=== PATIENT | female | born 1960 | race Caucasian/White ===

== ENCOUNTER 2018-08-07 06:07 | Emergency (ER) | payer OTHER ==
[2018-08-07] MEDS ORDERED: Albuterol/Ipratropium 3.0-0.5 MG/3 ML Neb Soln NEB ONE (06:29)
--- NOTE | 2018-08-07 06:35 | EDM.PDOC ---
ED HPI GENERAL MEDICAL PROBLEM - General Chief Complaint: Respiratory Problem Stated Complaint: COUGH, SORE THROAT, CAN'T BREATHE Time Seen by Provider: 08/07/18 06:25 - History of Present Illness INITIAL COMMENTS - FREE TEXT/NARRATIVE: HISTORY AND PHYSICAL: History of present illness: The patient is a 57-year-old female who presents with complaints of at least a one-week history of spastic cough productive of some white phlegm pain with coughing nasal congestion and drainage as well as a sore throat. The patient received her flu shot this year and has not had fevers chills nausea or vomiting with the symptoms. The patient was seen at [facility] last week and did not have any testing and was told that she had a viral illness. Because she has had some spasms of coughing she called her regular provider at [facility], and she saw a different person when she was there last week, and that provider called in Phenergan with codeine. Patient still is having is spastic cough and thinks that she needs more evaluation. She has been hydrating she does not smoke cigarettes. 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 Review of systems: As per history of present illness and below otherwise all systems reviewed and negative. Past medical history: As per history of present illness and as reviewed below otherwise noncontributory. Surgical history: As per history of present illness and as reviewed below otherwise noncontributory. Social history: No reported history of drug or alcohol abuse. Family history: As per history of present illness and as reviewed below otherwise noncontributory. Physical exam: General: Well-developed well-nourished female who is nontoxic and has nasal quality to voice. She is not breathless on my evaluation. She has a spastic cough is bronchitic and quality on my evaluation. Vital signs are noted by me HEENT: Atraumatic, normocephalic, negative for conjunctival pallor or scleral icterus, mucous membranes moist, throat clear, neck supple, nontender, trachea midline. No cervical adenopathy Lungs: Clear to auscultation without wheezing, breath sounds equal bilaterally, chest nontender. There are some scattered rhonchi but no wheezing or stridor and no worker breathing Heart: S1S2, regular rate and rhythm no overt murmurs Abdomen: Soft, nondistended, nontender. Pelvis: Deferred Genitourinary: Deferred. Rectal: Deferred. Extremities: Atraumatic, no pedal edema full range of motion Neurovascular unremarkable. Neuro: Awake, alert, oriented. Cranial nerves II through XII unremarkable. Cerebellum unremarkable. Motor and sensory unremarkable throughout. Exam nonfocal. Diagnostics: Chest x-ray Therapeutics: DuoNeb, prednisone, and spacer teaching Impression: Acute bronchitis with bronchospasm and bronchospastic cough Definitive disposition and diagnosis as appropriate pending reevaluation and review of above. 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: 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 History: Reports: None Neurological History: Reports: None Psychiatric History: Reports: None Endocrine/Metabolic History: Reports: None Hematologic History: Reports: None Immunologic History: Reports: None Oncologic (Cancer) History: Reports: None Dermatologic History: Reports: None - Infectious Disease History Infectious Disease History: Reports: None - Past Surgical History Head Surgeries/Procedures: Reports: None Female Surgical History: Reports: Hysterectomy Social & Family History - Family History Family Medical History: Noncontributory - Tobacco Use Smoking Status *Q: Never Smoker - Caffeine Use Caffeine Use: Reports: Coffee, Tea - Recreational Drug Use Recreational Drug Use: No ED ROS GENERAL - Review of Systems Review Of Systems: ROS reveals no pertinent complaints other than HPI. ED EXAM, GENERAL - Physical Exam Exam: See Below (See dictation) Course - Vital Signs Last Recorded V/S: Last Vital Signs Temp 36.5 C 08/07/18 06:16 Pulse 96 08/07/18 06:16 Resp 19 08/07/18 06:16 BP 131/71 08/07/18 06:16 Pulse Ox 95 08/07/18 06:16 - Orders/Labs/Meds Orders: Active Orders 24 hr Category Date Time Status Communication Order [RC] STAT Care 08/07/18 06:29 Active RT Aerosol Therapy [RC] ASDIRECTED Care 08/07/18 06:29 Active Chest 2V [CR] Stat Exams 08/07/18 06:29 Ordered Meds: Medications Discontinued Medications Generic Name Dose Route Start Last Admin Trade Name Dell PRN Reason Stop Dose Admin Albuterol/Ipratropium 3 ml 08/07/18 06:29 08/07/18 06:34 Duoneb 3.0-0.5 Mg/3 Ml NEB 08/07/18 06:30 3 ml ONETIME ONE Administration Prednisone 20 mg 08/07/18 06:36 Prednisone PO 08/07/18 06:37 ONETIME ONE Departure - Departure Time of Disposition: 07:00 Disposition: Home, Self-Care 01 Condition: Good Clinical Impression: Cough due to bronchospasm Acute bronchitis Qualifiers: Bronchitis organism: unspecified organism Qualified Code(s): J20.9 - Acute bronchitis, unspecified - Discharge Information Referrals: Krystal Mann NP [Primary Care Provider] - Forms: ED Department Discharge Additional Instructions: The following information is given to patients seen in the emergency department who are being discharged to home. This information is to outline your options for follow-up care. We provide all patients seen in our emergency department with a follow-up referral. The need for follow-up, as well as the timing and circumstances, are variable depending upon the specifics of your emergency department visit. If you don't have a primary care physician on staff, we will provide you with a referral. We always advise you to contact your personal physician following an emergency department visit to inform them of the circumstance of the visit and for follow-up with them and/or the need for any referrals to a consulting specialist. The emergency department will also refer you to a specialist when appropriate. This referral assures that you have the opportunity for followup care with a specialist. All of these measure are taken in an effort to provide you with optimal care, which includes your followup. Under all circumstances we always encourage you to contact your private physician who remains a resource for coordinating your care. When calling for followup care, please make the office aware that this follow-up is from your recent emergency room visit. If for any reason you are refused follow-up, please contact the [facility] emergency department at and ask to speak to the emergency department charge nurse. [address] [place] [address] Please contact her provider in the clinic for follow-up care and continue to use the cough medicine you were prescribed as you choose. Use the albuterol inhaler with the spacer you have been given 1-2 puffs every 6 hours for the next 2 days and then 1-2 puffs every 6 hours as needed. Take prednisone as prescribed. Push hydration and coolmist humidifier at sleep times. Use any over- the-counter preps that you choose for your symptoms. Return to ER as needed and as discussed - My Orders Last 24 Hours: My Active Orders 08/07/18 06:29 Communication Order [RC] STAT RT Aerosol Therapy [RC] ASDIRECTED Chest 2V [CR] Stat - Assessment/Plan Last 24 Hours: My Active Orders 08/07/18 06:29 Communication Order [RC] STAT RT Aerosol Therapy [RC] ASDIRECTED Chest 2V [CR] Stat
[2018-08-07] MEDS ORDERED: predniSONE 20 MG Tab PO ONE (06:36)
--- NOTE | 2018-08-07 10:34 | CR ---
EXAM DATE: 08/07/18 PATIENT'S AGE: 57 Patient: SALLY HOPE Facility: [facility] Site . Site : 1960 Study: XRay-Chest [id number]/12/2019 7:09:41 AM Ordering Physician: Doctor Larose Final Report: INDICATION: Shortness of breath. Cough. Pain. TECHNIQUE: Two-view chest. FINDINGS: There are several superior posterior left-sided rib fractures age indeterminate. Please correlate clinically. Specifically there is irregularity of the 2nd, 3rd, 4th, and 5th ribs. A displaced rib fracture is not excluded. Focal opacity left upper lobe could reflect intrapulmonary hematoma. Clear right lung. Normal heart size. No pneumothorax. Old fracture deformity left clavicle. Comparison to any previous studies would be helpful. Impression : Fracture deformities of several upper posterior left ribs age indeterminate. Please correlate for any history of trauma. Opacity left upper lobe could reflect intrapulmonary hemorrhage. If there has been no trauma, a primary pulmonary lesion could not be excluded. Comparison with any previous studies would be helpful. Dictated by Rodger Naik MD @ Aug 07 2018 7:21AM Signed by: Rodger Naik MD @08/07/2018 7:23:23 AM (Electronic Signature) Report Signed by Proxy. PETERSON
== END 2018-08-07 07:51 | disposition home or self-care (01) ==
LOC: MW.ED 06:07
DX: J20.9 Acute bronchitis, unspecified (principal); I10 Essential (primary) hypertension; Z90.710 Acquired absence of both cervix and uterus
CPT/HCPCS: 71046; 94640; 99283; A9270; J7620-GY

== ENCOUNTER 2019-06-23 11:22 | Emergency (ER) | payer OTHER ==
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
[2019-06-23] MEDS ORDERED: Acetaminophen/HYDROcodone 325-5 MG Tab PO ONE (12:31)
--- NOTE | 2019-06-23 13:00 | CR ---
Chest: Portable view of the chest was obtained. Comparison: Prior chest x-ray of 08/07/18. Heart size is mildly enlarged. Upper mediastinum is within normal limits for technique. Parenchymal density is noted within the left upper chest which is stable from previous exam and difficult to exclude a pulmonary nodule or mass. Slight scarring is seen within the left upper chest. Lung markings slightly increased which appears stable. No acute parenchymal change is seen. Old healed left clavicle fracture. Old left-sided rib fractures are noted. Impression: 1. Pulmonary opacity within left upper chest similar to prior study. Difficult to exclude pulmonary nodule or mass. Noncontrast chest CT could be obtained to further evaluate. 2. Scarring within the left upper chest. 3. Old bony trauma. 4. Mild cardiomegaly. Diagnostic code #9 This report was dictated in [place] Standard Time
--- NOTE | 2019-06-23 13:05 | CR ---
Left elbow: 3 views left elbow were obtained. Limitations: Positioning is somewhat less than optimal. No joint effusion is seen. No discrete fracture, dislocation or other bony abnormality is seen. Impression: 1. Slightly less than optimal exam due to positioning. 2. No discrete left elbow abnormality is appreciated. Diagnostic code #2 This report was dictated in [place] Standard Time
--- NOTE | 2019-06-23 13:05 | CR ---
Left wrist: 3 views left wrist were obtained. Comparison: No previous wrist exam. Distal radial fracture is seen. Posterior displacement of the distal fragment by 5-6 mm is noted. Nondisplaced fracture within the base of the ulnar styloid process is seen. No additional fracture or other bony abnormality is seen. Soft tissue swelling is noted. Impression: 1. Fractures as noted above with soft tissue swelling. Diagnostic code #3 This report was dictated in [place] Standard Time
--- NOTE | 2019-06-23 13:36 | CT ---
Head CT Technique: Multiple axial sections through the brain were obtained. Intravenous contrast was not utilized. Comparison: No prior intracranial imaging is available. Findings: Ventricles along with basal cisterns and sulci over the convexities appear within normal limits for the patient's age. No abnormal parenchymal densities are seen. No evidence of intracranial hemorrhage. No midline shift or mass effect is seen. Bone window settings were reviewed. Visualized paranasal sinuses show nothing acute. Mastoid sinuses also show nothing acute. No acute calvarial abnormality is appreciated. Impression: 1. Nothing acute is appreciated on noncontrast head CT exam. Diagnostic code #1 Study was dictated in [place] Standard Time
--- NOTE | 2019-06-23 13:36 | CT ---
CT cervical spine Technique: Multiple axial sections through the cervical spine were obtained. Study was obtained from above C1 inferiorly to the top of T4. Reconstructed coronal and sagittal images were obtained. Comparison: No prior cervical spine imaging. Findings: C5-C6: Moderate disc space narrowing is seen. Slight posterior osteophytes are noted as well as mild anterior osteophytes. Other disc spaces are maintained. Vertebral body heights are maintained. Mild degenerative apophyseal change is scattered throughout the cervical spine. No bony central or bony neural foraminal stenosis is seen. Cervical curvature is slightly abnormal due to degenerative change at C5-C6 Impression: 1. Degenerative change as noted above. 2. Nothing acute is appreciated on CT study of the cervical spine. Diagnostic code #2 Study was dictated in [place] Standard Time
== END 2019-06-23 14:35 | disposition home or self-care (01) ==
LOC: MW.ED 11:22
DX: S06.0X0A Concussion without loss of consciousness, initial encounter (principal); S62.102A Fracture of unspecified carpal bone, left wrist, initial encounter for closed fracture; I10 Essential (primary) hypertension; Z79.899 Other long term (current) drug therapy; W01.10XA Fall on same level from slipping, tripping and stumbling with subsequent striking against unspecified object, initial encounter; Y92.512 Supermarket, store or market as the place of occurrence of the external cause
CPT/HCPCS: 29125; 70450; 71045; 72125; 73080; 73110; 99285; A9270; 99283

== ENCOUNTER → 2019-06-26 | Day surgery (SDC) | payer OTHER ==
[~2019-06-26] MED LIST: Acetaminophen/oxyCODONE 325-5 MG Tab PO PRN; Bupivacaine 0.5% 30 ML SDV ONE; Glycopyrrolate 0.2 MG/ML SDV ONE; Haloperidol Lactate 5 MG/ML SDV IM ONE; Ketorolac 30 MG/ML SDV ONE; Lactated Ringers 1,000 ML IV SCH; Lidocaine 2% 5 ML SDV ONE; Midazolam 1 MG/ML 2 ML SDV ONE; Ondansetron 4 MG/2 ML SDV ONE; Phenylephrine/Normal Saline 100 MCG/ML 10 ML Syringe ONE; Propofol 200 MG/20 ML SDV ONE; Sodium Chloride 0.9% 20 ML ONE; ceFAZolin 1 GM Vial ONE; fentaNYL 100 MCG/2 ML SDV ONE
--- NOTE | 2019-06-26 07:22 | PCM.PREANE ---
Preanesthetic Assessment - Anesthesia/Transfusion/Family Hx Anesthesia History: Prior Anesthesia Without Reaction Family History of Anesthesia Reaction: No Transfusion History: No Prior Transfusion(s) - Review of Systems General: No Symptoms Pulmonary: No Symptoms Cardiovascular: No Symptoms Gastrointestinal: No Symptoms Neurological: Paresthesia Other: Reports: None - Physical Assessment NPO Status Date: 06/25/19 Height: 5 ft 8 in Weight: 95.254 kg ASA Class: 2 Mental Status: Alert & Oriented x3 Airway Class: Mallampati = 2 Dentition: Reports: Normal Dentition ROM/Head Extension: Full Lungs: Clear to Auscultation, Normal Respiratory Effort Cardiovascular: Regular Rate, Regular Rhythm - Allergies Allergies/Adverse Reactions: Allergies Allergy/AdvReac Type Severity Reaction Status Date / Time No Known Allergies Allergy Verified 06/25/19 16:40 - Blood Blood Available: No - Anesthesia Plan Pre-Op Medication Ordered: None - Acknowledgements Anesthesia Type Planned: General Anesthesia Pt an Appropriate Candidate for the Planned Anesthesia: Yes Alternatives and Risks of Anesthesia Discussed w Pt/Guardian: Yes Pt/Guardian Understands and Agrees with Anesthesia Plan: Yes Additional Comments: PMH: thr replacement, htn-controlled, MARIO-uses cpap regularly- inst sheet given PLAN: ga/lma PreAnesthesia Questionnaire HEENT History: Reports: Allergic Rhinitis, Other (See Below) Other HEENT History: wears glasses Cardiovascular History: Reports: Hypertension Respiratory History: Reports: Bronchitis, Recurrent, Sleep Apnea Other Respiratory History: uses CPAP Gastrointestinal History: Reports: Other (See Below) Other Gastrointestinal History: occasional heartburn Genitourinary History: Reports: None 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 Neurological History: Reports: Concussion Psychiatric History: Reports: None Endocrine/Metabolic History: Reports: Hypothyroidism, Obesity/BMI 30+ Hematologic History: Reports: None Immunologic History: Reports: None Oncologic (Cancer) History: Reports: None Dermatologic History: Reports: None - Infectious Disease History Infectious Disease History: Reports: None - Past Surgical History Head Surgeries/Procedures: Reports: None HEENT Surgical History: Reports: None Cardiovascular Surgical History: Reports: None Respiratory Surgical History: Reports: None GI Surgical History: Reports: Appendectomy Female Surgical History: Reports: Hysterectomy Endocrine Surgical History: Reports: None Neurological Surgical History: Reports: None 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 Surgical History: Reports: ORIF Other 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 Surgeries/Procedures:: ORIf fx collarbone, removal of hardware to collarbone Oncologic Surgical History: Reports: None Dermatological Surgical History: Reports: Skin Graft - SUBSTANCE USE Smoking Status *Q: Never Smoker Recreational Drug Use History: No - HOME MEDS Home Medications: Home Meds Losartan [Cozaar] 100 mg PO DAILY 08/07/18 [History] Dicyclomine [Bentyl] 10 mg PO DAILY 06/23/19 [History] Levothyroxine Sodium [Synthroid] 25 mcg PO DAILY 06/23/19 [History] - CURRENT (IN HOUSE) MEDS Current Meds: Current Medications Discontinued Medications Fentanyl (Sublimaze) Confirm Administered Dose 100 mcg .ROUTE .STK-MED ONE Stop: 06/26/19 06:56 Glycopyrrolate (Robinul) Confirm Administered Dose 0.2 mg .ROUTE .STK-MED ONE Stop: 06/26/19 07:01 Ketorolac Tromethamine (Toradol) Confirm Administered Dose 30 mg .ROUTE .STK- MED ONE Stop: 06/26/19 07:01 Lidocaine (Xylocaine-Mpf 2%) Confirm Administered Dose 5 ml .ROUTE .STK-MED ONE Stop: 06/26/19 07:01 Midazolam HCl (Versed 1 Mg/Ml) Confirm Administered Dose 2 mg .ROUTE .STK-MED ONE Stop: 06/26/19 06:56 Ondansetron HCl (Zofran) Confirm Administered Dose 4 mg .ROUTE .STK-MED ONE Stop: 06/26/19 07:01 Propofol (Diprivan 20 Ml) Confirm Administered Dose 200 mg .ROUTE .STK-MED ONE Stop: 06/26/19 06:56
[2019-06-26] MEDS: fentaNYL 100 MCG/2 ML SDV IVPUSH PRN ×2 (09:14→09:20)
--- NOTE | 2019-06-26 10:36 | PCM.OPNOTE ---
- General Post-Op/Procedure Note Date of Surgery/Procedure: 06/26/19 Operative Procedure(s): orif left distal radius. left wrist short arm splint Pre Op Diagnosis: left distal radius closed Post-Op Diagnosis: Same Anesthesia Technique: General ET Tube Primary Surgeon: Loyd Harrell End Frazer: Lida Granados EBL in mLs: 0 Complications: None Condition: Good Free Text/Narrative:: Intake & Output 06/25/19 06/26/19 06/26/19 22:59 06:59 14:59 Intake Total 800 Balance 800
--- NOTE | 2019-06-26 12:05 | PCM.POSTAN ---
POST ANESTHESIA ASSESSMENT - MENTAL STATUS Mental Status: Alert, Oriented - VITAL SIGNS Vital Signs: Last Vital Signs Temp 97.5 F 06/26/19 09:45 Pulse 82 06/26/19 10:15 Resp 16 06/26/19 10:00 BP 144/80 H 06/26/19 10:15 Pulse Ox 98 06/26/19 10:00 - RESPIRATORY Respiratory Status: Respiratory Rate WNL, Airway Patent, O2 Saturation Stable - CARDIOVASCULAR CV Status: Pulse Rate WNL, Blood Pressure Stable - GASTROINTESTINAL GI Status: No Symptoms - POST OP HYDRATION Hydration Status: Adequate & Stable
--- NOTE | 2019-06-26 12:05 | PCM48HPAN ---
Post Anesthesia Note - EVALUATION WITHIN 48HRS OF ANESTHETIC Vital Signs in Normal Range: Yes Patient Participated in Evaluation: Yes Respiratory Function Stable: Yes Airway Patent: Yes Cardiovascular Function Stable: Yes Hydration Status Stable: Yes Pain Control Satisfactory: Yes Nausea and Vomiting Control Satisfactory: Yes Mental Status Recovered: Yes Vital Signs: Last Vital Signs Temp 97.5 F 06/26/19 09:45 Pulse 82 06/26/19 10:15 Resp 16 06/26/19 10:00 BP 144/80 H 06/26/19 10:15 Pulse Ox 98 06/26/19 10:00
--- NOTE | 2019-06-26 16:12 | CR ---
Left wrist: 3 fluoroscopic spot views of the left wrist are obtained utilizing C-arm device. Study shows placement of plate and screws affixing previous distal left radial fracture. Fluoroscopy time is given as 4 seconds. Impression: 1. Procedural study as noted above. Diagnostic code #2 Study was dictated in [place] Standard Time
--- NOTE | 2019-06-26 16:59 | OR ---
SURGEON: Loyd Harrell DATE OF PROCEDURE: 06/26/2019 PREOPERATIVE DIAGNOSIS: Left distal radius fracture, closed. POSTOPERATIVE DIAGNOSIS: Left distal radius fracture, closed. PROCEDURE: Open reduction and internal fixation of left distal radius and application of short-arm splint. BLOCK SPLITTER OPERATOR: ISIDRA Santos. Nurse practitioner, ISIDRA Santos, played an essential role in assisting in this case, helping to position the patient, retract structures as needed, as well as suturing and cutting sutures as indicated. Her presence improved patient's safety and decreased operative time. FLUIDS: Lactated Ringer solution. ESTIMATED BLOOD LOSS: 10 mL. COMPLICATIONS: None. SPECIMEN: None. DISCHARGE DISPOSITION: Stable to PACU. HISTORY AND INDICATION FOR THE PROCEDURE: The patient was seen preoperatively in the clinic. She had suffered a fall, was seen in the emergency department, was found to have the above-mentioned fracture confirmed by radiographs. Preoperative risks and goals of the procedure were explained to the patient. Informed consent was obtained. DETAILS OF PROCEDURE: The patient was seen preoperatively by myself and the Anesthesia staff in the preoperative holding area where the operative site was marked. She was brought to the operative suite by the Anesthesia staff where general anesthesia was administered. A well-padded tourniquet was placed on the left arm. The left upper extremity was then prepped and draped in sterile manner. Time-out was called identifying the correct patient, correct procedure, the correct site, and then antibiotics began within appropriate period of time. The left upper extremity was then exsanguinated and tourniquet was raised to 200 mmHg. A midline incision was made over the flexor carpi radialis tendon just proximal to the radiocarpal joint and then extending proximally about 12 cm. This was carried down to the subcutaneous tissue. The hematoma was encountered. The FCR sheath was then divided with a 15 blade and the tendon was then taken radially to protect the radial artery. I then went through the dorsal aspect of the sheath and encountered the pronator, removed the pronator from the radius on its radial side and reflected it back ulnarly all the way to the styloid. The fragment was then easily visualized. I then reduced this and then placed a K- wire through the styloid down to the shaft. I then placed a short narrow plate on the distal radius and confirmed it to be in good position. I then placed my screw through the oblong hole and then one of the distal screws was placed distally to bring it to the plate. This was too large and was eventually replaced during the later portions of the case. I then drilled my distal holes and filled those with non-lockers and my proximal holes with non-lockers in the proximal row and then finished the rest of the proximal holes on the plate. After replacing the first screw that brought into the plate with appropriate length screw, I then took final films, which showed good reduction and proper place, placement, and screw length. I then irrigated copiously with saline and then had my web production assistant close with 2-0 Vicryl and 3-0 nylon followed by Betadine- soaked Adaptic, fluffs, ABD, and an Juan wrap over a volar short-arm splint. The patient was allowed to awake from general anesthesia and then taken to the PACU in stable condition. [id number] / MODL /[id number]
== END | disposition home or self-care (01) ==
LOC: MW.SDS 06:37
PROVIDERS: ATTEND Orthopaedic Surgery
DX: S52.502A Unspecified fracture of the lower end of left radius, initial encounter for closed fracture (principal); I10 Essential (primary) hypertension; E03.9 Hypothyroidism, unspecified; G47.33 Obstructive sleep apnea (adult) (pediatric); E66.9 Obesity, unspecified; W00.0XXA Fall on same level due to ice and snow, initial encounter; Z79.891 Long term (current) use of opiate analgesic; Z79.899 Other long term (current) drug therapy; Z68.31 Body mass index [BMI] 31.0-31.9, adult; Z99.89 Dependence on other enabling machines and devices
CPT/HCPCS: 25607; 76000; A9270; J0690; J1630; J1885; J2001; J2250; J2370; J2405; J2704; J3010; J3490; J7120; 01830

== ENCOUNTER 2025-04-05 16:16 | Emergency (ER) | payer OTHER, BC ==
[2025-04-05] MEDS: Diphtheria,Pertussis(Acell),Tetanus Vaccine 0.5 ML Syringe IM ONE (17:41)
[2025-04-05] MEDS: Ketorolac 30 MG/ML SDV IM ONE (19:27)
[2025-04-05] MEDS: Bacitracin Oint 1 GM U/D Packet TOP ONE (19:28)
== END 2025-04-05 19:37 | disposition home or self-care (01) ==
LOC: MW.ED 16:16
DX: S06.0X0A Concussion without loss of consciousness, initial encounter (principal); S63.502A Unspecified sprain of left wrist, initial encounter; S00.212A Abrasion of left eyelid and periocular area, initial encounter; R42 Dizziness and giddiness; I10 Essential (primary) hypertension; E66.9 Obesity, unspecified; E03.9 Hypothyroidism, unspecified; Z79.899 Other long term (current) drug therapy; Z79.890 Hormone replacement therapy; Z86.16 Personal history of COVID-19; Z90.710 Acquired absence of both cervix and uterus; Z90.49 Acquired absence of other specified parts of digestive tract; Z23 Encounter for immunization; Z68.32 Body mass index [BMI] 32.0-32.9, adult; W01.198A Fall on same level from slipping, tripping and stumbling with subsequent striking against other object, initial encounter; W00.9XXA Unspecified fall due to ice and snow, initial encounter
CPT/HCPCS: 70450; 70486; 72125; 73110; 73130; 90471; 90715; 96372; 99284; A9270; J1885